=== PATIENT | female | born 1935 | race African-American/Black ===

== ENCOUNTER 2017-03-12 23:24 | Inpatient (IN) | payer MEDICARE ==
--- NOTE | ~2017-03-12 | CO ---
Unit #: [id number] #: [id number] Patient: KAITLYNN MALCOLM [id number] [address] [place], [place] [address] [id number] MR#: [id number] NAME: KAITLYNN MALCOLM ROOM: 329 Age: 81 Sex: F Admission Date: 03/13/2017 : 1935 Attending Physician: Shilo Cruz M.D. Consultation Date: 03/13/2017 CONSULTATION REPORT HISTORY OF PRESENT ILLNESS This is an 81-year-old female, admitted with a 1-day history of nausea, vomiting, diarrhea, abdominal pain, probable gastroenteritis. We were asked to see the patient secondary to bradycardia. On review of the telemetry strips and EKG, there was no evidence of high-grade AV block or junctional rhythm. The patient is poorly cooperative and a poor historian; however, she does deny any complaints of chest pain, shortness of breath, or palpitations. EKG shows marked sinus bradycardia, rate of 47 beats per minute, left bundle-branch block is present. I am unsure if this is new or old as there are no prior records for comparison. The patient does not know who her normal roll table operator is. Initial cardiac enzymes have been negative. At present, there is no family present at bedside. Again, she is poorly cooperative, will not answer any questions hardly, and is curled up in a ball. States she does not want to be bothered. According to Dr. Cruz's note, he was able to access some records from the [facility] and she has been seen by Dr. Gilmore in the past and apparently had a negative Lexiscan stress test in 2012. PAST MEDICAL HISTORY 1. Hypertension. 2. Questionable dementia. 3. Questionable leaky valve. 4. GERD. 5. Questionable coronary artery disease. 6. Panic attacks. 7. Arthritis. 8. Anxiety. PAST SURGICAL HISTORY 1. Right foot surgery. 2. Uterine prolapse. SOCIAL HISTORY The patient lives with family members according to the chart. Lifelong nonsmoker. Denies alcohol or drug use. FAMILY HISTORY Unknown. MEDICATIONS Unit #: [id number] #: [id number] Patient: KAITLYNN MALCOLM Remeron 15 mg p.o. q.h.s., Celexa 20 mg p.o. daily, Aricept 5 mg p.o. daily, carvedilol 3.125 p.o. b.i.d., Loratadine-D one p.o. q.h.s., clonazepam 0.5 mg p.o. b.i.d., lisinopril 5 mg p.o. daily. ALLERGIES No known drug allergies. PHYSICAL EXAMINATION GENERAL: The patient is curled up in a ball, is minimally cooperative, and a poor historian, does not appear to be in any distress. VITAL SIGNS: Temperature 98.5, respiratory rate 18, pulse is 40s to 50s, blood pressure 160/76 to 173/82. HEENT: Pupils are equal and round. Mucous membranes are moist. NECK: Trachea is midline. Supple. No thyromegaly. No lymphadenopathy. No carotid bruits. CARDIOVASCULAR: S1, S2. No audible murmur, gallop, or rub. LUNGS: Scattered rhonchi, diminished in the bases. ABDOMEN: Soft, nontender, nondistended. Bowel sounds are present. EXTREMITIES: Trace lower extremity edema. No clubbing, cyanosis. NEUROLOGIC: Poor historian. Follows basic commands. Moves all extremities. DIAGNOSTIC STUDIES LABORATORY RESULTS: Glucose 97, BUN 17, creatinine 1.3, sodium 141, potassium 3.6, chloride 109, CO2 of 25. Initial troponin is negative. TSH is currently pending. Hemoglobin 9.4, hematocrit 28.7, WBC 6.6, platelet count 151. Urinalysis was negative. She has blood cultures which are currently pending. IMAGING STUDIES: Chest x-ray shows no active disease, stable mild cardiomegaly, benign calcified granulomas in the left lung base and left hilum. No change since 09/26/2008. CT of the abdomen and pelvis shows cholelithiasis, mild gallbladder wall thickening. No bile duct dilation. Infrarenal abdominal aortic aneurysm measuring up to 3.5 cm. Bilateral renal cysts and multiple small nonobstructing renal parenchymal calcifications, sigmoid diverticulosis. CARDIOVASCULAR STUDIES: EKG shows marked sinus bradycardia, rate of 47 beats per minute, left bundle-branch block, QTc interval of 506 msec, she does have some T-wave inversion in the inferior leads. IMPRESSION 1. Viral gastroenteritis with nausea, vomiting, and diarrhea. 2. Marked sinus bradycardia. 3. Left bundle-branch block with an abnormal EKG. I am unsure if this is new or old, as there are no prior records available for review. 4. Hypertension. 5. Dementia. 6. History of questionable weak heart. PLAN The patient has been difficult to cooperate and is a poor historian. At present, there is no family available at bedside. I attempted to reach the son and there was no answer. At this time, we will continue to monitor cardiac enzymes and troponins. The patient does have an abnormal Unit #: [id number] #: [id number] Patient: KAITLYNN MALCOLM EKG with a left bundle-branch block. I am unsure if this is new or old and she does have some T-wave inversion in the inferior leads. We have no prior EKGs for comparison. There is some question of weak heart and the patient apparently had an ischemic evaluation in the past. Per review of the hospitalist's note at [facility] in 2012, which was negative at that time, and apparently had been followed by Dr. Gilmore in the past. At this time, we would discontinue her carvedilol secondary to the marked bradycardia; however, the patient is asymptomatic. We would also add hydralazine 10 mg p.o. t.i.d. as her blood pressure is slightly elevated. Hold for systolic less than 100. We will check 2D echocardiogram with Doppler studies to assess LVEF and for any valvular abnormalities. We will add a BNP to blood and lab, check fasting lipid panel. Would recommend keeping the patient n.p.o. after midnight for a Lexiscan Cardiolite in the a.m. if she will cooperate. We will also give orders for IV hydralazine p.r.n. for systolic greater than 160. Suppose the patient most likely suffers from sinus node dysfunction, again her beta-cindy has been discontinued. If symptomatic, can consider evaluation for permanent pacemaker placement. TSH is currently pending. Dictated by... Bereket WebbPJero for Ying Cantor M.D. CONNIE/tianna TD: 03/14/2017 02:49 JOB #: [id number] CONSULTATION REPORT Page 1 of 1 X July Servin APRN CONSULTATION REPORT
--- NOTE | ~2017-03-12 | CR72 ---
[facility] A Service of [facility] RADIOLOGY TEXT RESULTS PATIENT: KAITLYNN MALCOLM [facility] [id number] : [birth year] UNIT #: [id number] AGE: [address]: Hussein Pinon MD SEX: F ORDER DR: [id number] [facility] [address] [place], [place] [address] [id number] E MR#: [id number] Acc #: [id number] NAME: KAITLYNN MALCOLM : 1935 SEX: F STUDY DATE/TIME: 03/12/2017 22:20 UNIT: [facility] ROOM: STUDY DESCRIPTION: CR Chest Single View Portable Attending Physician: Conner Mendez M.D. Ordering Physician: Conner Mendez M.D. MEDICAL IMAGING REPORT This report is preliminary unless electronic signature is present EXAM Chest x-ray 03/12/2017 HISTORY 81-year-old female in the ED complaining of 1-day history of shortness of air, weakness, nausea, vomiting and diarrhea. TECHNIQUE AP upright chest x-ray. FINDINGS No active disease in the chest. Mild cardiomegaly. Pulmonary vascularity is normal. The lungs appear clear. No visible pulmonary infiltrate or pleural effusion. Benign calcified granulomas in the left lung base and left hilum. IMPRESSION 1. No active disease. 2. Stable mild cardiomegaly. 3. No change since 09/26/2008. Dictated by... Jeff Tripp M.D. THIS IS AN ELECTRONICALLY VERIFIED REPORT Jeff Tripp M.D. at 03/13/2017 5:53 AM NETTIE/kimani TD: 03/12/2017 23:28 JOB #: [id number] MEDICAL IMAGING REPORT Page 1 of 1 COPY
--- NOTE | ~2017-03-12 | EKG ---
PATIENT: KAITLYNN MALCOLM UNIT #: [id number] Ventricular Rate: 47 BPM Atrial Rate: 47 BPM P-R Interval: 140 ms QRS Duration: 138 ms Q-T Interval: 572 ms QTC Calculation(Bezet): 506 ms P [place]: 70 degrees Calculated R [place]: -11 degrees Calculated T [place]: -124 degrees Diagnosis Line: Marked sinus bradycardia Diagnosis Line: Left bundle branch block Diagnosis Line: Abnormal ECG Diagnosis Line: No previous ECGs available Diagnosis Line: Confirmed by EVAN REINA MD ([id number]) on Diagnosis Line: 03/13/2017 12:49:58 PM INTERPRETING MD: XENIA
--- NOTE | ~2017-03-12 | DS ---
Unit #: [id number] #: [id number] Patient: KAITLYNN MALCOLM [id number] [address] [address] [id number] I MR#: [id number] NAME: KAITLYNN MALCOLM ROOM: 329 Age: 81 Sex: F Admission Date: 03/13/2017 : 1935 Discharge Date: 03/15/2017 Attending Physician: Anny Francis M.D. DISCHARGE SUMMARY ADDENDUM DISCHARGE DIAGNOSES (CONTINUED) 14. Tachycardia. HOSPITAL COURSE (CONTINUED) Following dictation yesterday, off of beta blockers patient's heart rate increased to 150; thus, discharge was held. Cardiology placed her on low-dose metoprolol, and at this time, heart rate has remained stable in the 60s to 70s. Her nausea and vomiting have resolved, and she has not had any chest pain. She will be discharged home later today on medications as outlined below. DISCHARGE CONDITION Stable. DISCHARGE STATUS Discharge to home. DISCHARGE MEDICATIONS 1. Metoprolol tartrate 12.5 mg b.i.d. 2. Celexa 20 mg daily. 3. Remeron 15 mg at bedtime. 4. Claritin D 1 at bedtime. 5. Clonazepam 0.5 mg b.i.d. 6. Aricept 5 mg daily. 7. Hydralazine 25 mg t.i.d. 8. Lisinopril 5 mg daily. DISCHARGE INSTRUCTIONS 1. Patient is instructed to follow a heart-healthy diet as previously noted. 2. She will follow up with Dr. Gilmore in two to three weeks as previously dictated. 1. Dictated by... Bandar Sol TD: 03/15/2017 21:36 JOB #: [id number] Unit #: [id number] #: [id number] Patient: KAITLYNN MALCOLM DISCHARGE SUMMARY Page 1 of 1 X Anny Francis MD DISCHARGE SUMMARY
--- NOTE | ~2017-03-12 | EKG ---
PATIENT: KAITLYNN MALCOLM UNIT #: [id number] Ventricular Rate: 64 BPM Atrial Rate: 64 BPM P-R Interval: 142 ms QRS Duration: 136 ms Q-T Interval: 490 ms QTC Calculation(Bezet): 505 ms P [place]: 71 degrees Calculated R [place]: 37 degrees Calculated T [place]: -147 degrees Diagnosis Line: Normal sinus rhythm Diagnosis Line: Left bundle branch block with repolarization Diagnosis Line: abnormality Diagnosis Line: Abnormal ECG Diagnosis Line: When compared with ECG of 13-MAR-2017 07:46, Diagnosis Line: ST no longer elevated in Anterior leads Diagnosis Line: Confirmed by KEVEN LORENZANA MD ([id number]) on 03/17/2017 Diagnosis Line: 11:45:26 AM INTERPRETING MD: HARRIETT CUNNINGHAM
--- NOTE | ~2017-03-12 | DS ---
Unit #: [id number] #: [id number] Patient: KAITLYNN GASTELUM [id number] [address] [address] [id number] I MR#: [id number] NAME: KAITLYNN GASTELUM ROOM: 329 Age: 81 Sex: F Admission Date: 03/13/2017 : 1935 Discharge Date: 03/15/2017 Attending Physician: Anny Francis M.D. DISCHARGE SUMMARY PRINCIPAL DIAGNOSES 1. Viral gastroenteritis. 2. Medication-induced bradycardia, now resolved. 3. Chronic kidney disease, stage 3. Recent creatinine approximately 1.4. 4. Chronic systolic congestive heart failure with ejection fraction of 40% to 45%. 5. Dementia, likely vascular. 6. Chronic left bundle branch block. 7. Depression. 8. Hypertension, controlled. 9. Coronary artery disease. 10. Panic attacks. 11. Osteoarthritis. 12. Underweight. 13. Normocytic anemia. CONSULTANTS Dr. Ramirez, cardiology. PROCEDURES 1. 2D echocardiogram with ejection fraction of 40% to 45%. Moderately dilated left atrium noted. Mild mitral regurgitation noted. 2. Chest x-ray, 03/12/2017, stable cardiomegaly. 3. CT scan of the abdomen and pelvis, 03/13/2017, with findings of cholelithiasis and mild gallbladder wall thickening. No bile duct dilatation. Infrarenal abdominal aortic aneurysm measuring 3.5 cm. CLINICAL HISTORY AND HOSPITAL COURSE Ms. Gastelum is a nice 81-year-old female brought to the emergency department by her family due to nausea and vomiting. Please refer to History and Physical for further details. CT scan of the abdomen and pelvis in the emergency department was essentially unremarkable. The patient's blood work was also nonspecific. The patient was placed in observation for evaluation. The patient was started on a clear liquid diet and, fortunately, her nausea and vomiting has resolved. It appears she has not had any fever nor has she had any leukocytosis during her hospitalization. I will advance diet. The patient was found to have bradycardia and was on chronic beta cindy therapy. For this reason, Cardiology was consulted. Beta cindy was held and her bradycardia has resolved. This can be followed up as an outpatient. Unit #: [id number] #: [id number] Patient: KAITLYNN GASTELUM The patient did undergo a 2-dimensional echocardiogram with findings as noted. Will continue her on ESTEPHANIA inhibitor upon discharge. Patient will be discharged home today. DISCHARGE CONDITION Stable. DISCHARGE STATUS Discharge to home. DISCHARGE MEDICATIONS 1. Celexa 20 mg daily. 2. Remeron 15 mg h.s. 3. Loratadine D one tablet h.s. 4. Clonazepam 0.5 mg b.i.d. 5. Aricept 5 mg daily. 6. Hydralazine 25 mg p.o. t.i.d. 7. Lisinopril 5 mg daily. DISCHARGE INSTRUCTIONS 1. Patient was instructed to follow a heart healthy diet. 2. Increase activities as tolerated. FOLLOWUP Dr. Gilmore, her primary advisory software engineer, in two to three weeks. Dictated by... Anny Francis M.D. WEI/lopez TD: 03/15/2017 17:10 JOB #: [id number] DISCHARGE SUMMARY Page 1 of 1 X Anny Francis MD X DISCHARGE SUMMARY
--- NOTE | ~2017-03-12 | EKG ---
PATIENT: KAITLYNN MALCOLM UNIT #: [id number] Ventricular Rate: 68 BPM Atrial Rate: 68 BPM P-R Interval: 114 ms QRS Duration: 140 ms Q-T Interval: 482 ms QTC Calculation(Bezet): 512 ms P [place]: 73 degrees Calculated R [place]: 12 degrees Calculated T [place]: -154 degrees Diagnosis Line: Normal sinus rhythm Diagnosis Line: Left bundle branch block Diagnosis Line: Abnormal ECG Diagnosis Line: No previous ECGs available Diagnosis Line: Confirmed by EVAN REINA MD ([id number]) on Diagnosis Line: 03/13/2017 12:41:45 PM INTERPRETING MD: XENIA
--- NOTE | ~2017-03-12 | TH ---
Unit #: [id number] #: [id number] Patient: KAITLYNN MALCOLM [id number] [address] [address] [id number] I MR#: [id number] NAME: KAITLYNN MALCOLM : 1935 SEX: F STUDY DATE/TIME: 03/14/2017 UNIT: [id number] ROOM: 329 STUDY DESCRIPTION: Attending Physician: Anny Francis M.D. CARDIOLOGY REPORT EXAM Rest images of nuclear study. INDICATION Chest pain. SUMMARY Patient underwent nuclear study. Only rest images were obtained. Patient's test was cancelled as it was deemed unrequired/unnecessary during this presentation. Patient received a resting dose of 11.45 mCi on rest only images. Rest images have been reviewed and show appropriate uptake of the tracer in the myocardium. There is no stress part/no gated imaging. CONCLUSION 1. Uniform uptake of tracer seen in the rest only images. 2. No further perfusion imaging available to comment on ischemia. 3. No infarction noted. 4. Incomplete study (test stopped as was deemed not necessary during this hospitalization any further). 1. Dictated by... Yassine Maldonado M.D. CT/sheldon TD: 03/14/2017 15:45 JOB #: [id number] CARDIOLOGY REPORT Page 1 of 1 X YASSINE MALDONADO MD CARDIOLOGY REPORT
--- NOTE | ~2017-03-12 | A ---
[facility] Nutrition Therapy DATE: 03/14/17 Patient: KAITLYNN MALCOLM Physician: NILAY Address: [address] [place] [address] Room/Bed: [address] [place] [address], Zip: [place] [address] Admit Date: 03/14/17 Date of : [birth year] Height: 5 5 Weight: 100 45.4 NUTRITIONAL ASSESSMENT: REASON: LOW BMI PT IS 81 Y.O. FEMALE ADMITTED FOR GASTROENTERITIS PMH: ARTHRITIS, ANXIETY, DEPRESSION, GERD, POSSIBLE CAD, POSSIBLE DEMENTIA Anthropometrics: 5'5", WT: 96-100# (44-45 KG), BMI: 16.0-16.6, 77-80%IBW Labs: CREAT: 1.5, GFR: 37.0 Meds: REMERON, PROTONIX, ZOFRAN, NACL I/O & Bowel function: 1200/905 Skin Integrity: DRY SKIN NOTED ALL OVER BODY Estimated Nutrition Needs: INCREASED NUTRIENT NEEDS 2' PT UNDERWEIGHT, CURRENT CONDITION Assessment: CHART REVIEWED AND EVENTS NOTED. PT SEEN FOR LOW BMI. PT DID NOT COMMUNICATE 2' SLEEPY/LETHARGIC AND ?DEMENTIA. RD SPOKE TO SON AT BEDSIDE WHO REPORTS PT TO HAVE A NORMAL FAIR/GOOD PO INTAKE AND APPETITE. SON ADDS PT CONSUMES 3 MEALS DAILY AT HOME. OF NOTE, PT LOST HER BOTTOM DENTURE SO HAS BEEN EATING SOFT FOODS PAST 2-3 WEEKS. SON NOTES PT HAS BEEN SAME WEIGHT PAST YEAR. RD ENCOURAGED ADEQUATE KCAL AND PROTEIN INTAKE, SON AGREED THAT ENSURE SHAKES WOULD BE BENEFICIAL, RD WILL ORDER. RD ALSO PROVIDED WRITTEN SOFT FOOD NUTRITION THERAPY DIET EDUCATION. SON REPORTED NO DIET QUESTIONS AT THIS TIME. RD TO FOLLOW. Dx: UNDERWEIGHT R/T PMH, DECREASED INTAKE, ADVANCED AGE AEB BMI OF 16.0-16.6, 77-80%IBW. Intervention: 1. FULL LIQUID DIET 2. ENSURE SHAKES BID 3. WRITTEN SOFT FOODS DIET EDUCATION Monitoring, Evaluation and Goals: 1. ORAL INTAKE; ADVANCE DIET AND CONSUME >50% OF MEALS AND SUPPLEMENTS W/NO C/O N/V/D 2. WEIGHTS; PROMOTE GRADUAL WEIGHT GAIN 3. GI; PROMOTE REGULAR GI FUNCTION MONITOR: -DIET ADVANCEMENT -PO INTAKE/APPETITE [facility] Nutrition Therapy DATE: 03/14/17 Patient: KAITLYNN MALCOLM Physician: NILAY Address: [address] [place] [address] Room/Bed: [address] [place] [address], Zip: [place] [address] Admit Date: 03/14/17 Date of : [birth year] Height: 5 5 Weight: 100 45.4 -SUPPLEMENT INTAKE -WEIGHTS Recommendations: 1. PLEASE ORDER VANILLA ENSURE SHAKES BID W/MEALS 2. ONCE MEDICALLY FEASIBLE, ADVANCE DIET TO REGULAR (ENCOURAGE SOFT FOODS). 3. APPRECIATE FAMILY AND STAFF TO ASSIST W/ORDERING MEALS AND ENCOURAGE PO INTAKE RD WILL F/U PER PROTOCOL PT IS MILD/MODERATELY COMPROMISED Respectfully, GALO BARLOW MS, RD, LD Food and Nutritional Services [facility] cc: client file
--- NOTE | ~2017-03-12 | HP ---
Unit #: [id number] #: [id number] Patient: KAITLYNN MALCOLM [id number] [address] [address] [id number] I MR#: [id number] NAME: KAITLYNN MALCOLM ROOM: 329 Age: 81 Sex: F Admission Date: 03/13/2017 : 1935 Attending Physician: Shilo Cruz M.D. HISTORY AND PHYSICAL The patient is a poor historian secondary to dementia, history is from collateral sources and emergency room documentation. The patient's relatives are unavailable at the time of this evaluation, phone number is [phone]. There has been a call out to the patient's relative. CHIEF COMPLAINT Nausea and vomiting. HISTORY OF PRESENT ILLNESS The patient is an eubgsx-cqcyv-mfuw-old female, who was brought to the emergency room for evaluation on account of lethargy and vomiting and diarrhea. She was admitted for evaluation. While in the (1) , she was noted to have an abnormal rhythm, though cardiac markers in the emergency room were negative. The patient is a very poor historian and unable to provide a history at this time and family member is unavailable at this time. I have been able to access the records from the [facility] and the last time she was admitted seemed to have been in March 2013 at [facility]. She has had multiple emergency room visits dating back to December 2015. She had a negative Lexiscan stress test in 2012 and per documentation in 2012 she was being followed by Dr. Gilmore. She denies any complaints at this time today. REVIEW OF SYSTEMS No chest pain, headache, shortness of breath, or difficulty breathing. PAST MEDICAL HISTORY 1. History of "a weak heart." 2. Hypertension. 3. Some uterine prolapse. 4. Coronary artery disease. 5. Gastroesophageal reflux disease. 6. Panic attacks. 7. Hypertension. 8. Arthritis. PAST SURGICAL HISTORY 1. Right foot surgery. 2. Uterine prolapse. SOCIAL HISTORY The patient is and lives with family members and lifelong Unit #: [id number] #: [id number] Patient: KAITLYNN MALCOLM nonsmoker. FAMILY HISTORY Noncontributory at this time. MEDICATIONS Don't have documentation of medications that the patient is on at this time except for the medication reconciliation which was done which included: 1. Remeron 15 mg p.o. at bedtime 2. Celexa 20 mg p.o. daily 3. Aricept 5 mg p.o. daily 4. Coreg 3.125 mg p.o. twice daily 5. Loratadine D one tablet p.o. at bedtime 6. Clonazepam 1.5 mg p.o. twice daily 7. Lisinopril 5 mg p.o. daily ALLERGIES No documented drug allergies. PHYSICAL EXAMINATION GENERAL: She was comfortable and not in any distress. VITAL SIGNS: Blood pressure 160/76, pulse 44, respiratory rate 16, temperature 99.0. HEENT: Pupils equal and reactive to light and accommodation. NECK: Neck was supple without thyromegaly. CARDIOVASCULAR SYSTEM: First and second heart sounds only. ABDOMEN: Soft, nondistended, nontender. EXTREMITIES: Mild 1+ bilateral lower extremity edema. SKIN: Warm and dry with no rashes. DIAGNOSTIC STUDIES LABORATORY: Diagnostic data, she had chemistries, glucose of 97, BUN and creatinine 70 and 1.3, sodium and potassium 141 and 3.6. She had a CBC and WBC 6.6, hemoglobin and hematocrit 9.4 and 28.7, platelet count 151, neutrophil count of 84.9. Urinalysis was essentially negative with a specific gravity of 1012. Set of cardiac markers were negative. IMAGING: A chest x-ray was done was also no active disease, stable cardiomegaly. ASSESSMENT/PLAN 1. Lethargy of questionable etiology, will get amylase and lipase, and volume status-louise the patient seems to be optimal. 2. Questionable bad heart, that is actually what the diagnosis is, looking back in 2013 ejection fraction was about 75%, in light of the abnormal rhythm of the strip we will get cardiology to evaluate the patient and get two sets of cardiac enzymes. 3. Gastroenteritis, the patient is stable at this time, I see no reason to put her on fluids, we will just keep fluid replacement so we can evaluate the patient completely. 4. Abnormal EKG, EKG showed mild sinus debra, left bundle branch block. The patient is on a beta cindy, other than chloride, this has been held at this time. 5. Alzheimer's dementia. She is on Aricept. DISPOSITION This is to be determined. Unit #: [id number] #: [id number] Patient: KAITLYNN MALCOLM Dictated by Bandar Tovar TD: 03/13/2017 12:21 JOB #: [id number] HISTORY AND PHYSICAL Page 1 of 1 X Shilo Cruz MD X HISTORY AND PHYSICAL
--- NOTE | ~2017-03-12 | CT4 ---
[facility] A Service of [facility] RADIOLOGY TEXT RESULTS PATIENT: KAITLYNN MALCOLM LOCATION: [facility] 329-01 : 33 UNIT #: [id number] AGE: [address]: Shilo Cruz MD SEX: F ORDER DR: [id number] [facility] [address] [place], [place] [address] [id number] MR#: [id number] #: [id number] NAME: KAITLYNN MALCOLM : 1935 SEX: F STUDY DATE/TIME: 03/13/2017 1:02 UNIT: [address] ROOM: [facility] STUDY DESCRIPTION: CT Abd and Pelv Wo Cont Attending Physician: Shilo Cruz M.D. Ordering Physician: Conner Mendez M.D. MEDICAL IMAGING REPORT This report is preliminary unless electronic signature is present EXAM CT abdomen and pelvis, noncontrast, 03/13/2017. HISTORY 81-year-old female in the ED complaining of new onset nausea, diarrhea and vomiting beginning earlier today. The patient has dementia. TECHNIQUE CT examination of the abdomen and pelvis was performed without oral or IV contrast. This CT exam was performed with one or more of the following radiation dose reduction techniques: automatic control, adjustment of mA and/or kV according to patient size, and iterative reconstruction. FINDINGS ABDOMEN FINDINGS: Multiple gallstones are present within a nondistended, thick-walled gallbladder. There is no bile duct dilatation. Liver, pancreas and spleen are within normal limits. Multiple bilateral renal cysts are present along with numerous small nonobstructing renal parenchymal calcifications. Infrarenal abdominal aortic aneurysm measures up to 3.5 cm in diameter, but there is no periaortic fluid collection. Moderate sigmoid diverticulosis. Small bowel and colon are otherwise normal in caliber and appearance, as imaged. PELVIS FINDINGS: Uterus is not identified and is presumably surgically absent. Bladder wall appears mildly thickened. Rectum is unremarkable. No inguinal hernia. Limited lung base images show no active disease in the lower chest. 1. Cholelithiasis. Mild gallbladder wall thickening. No bile duct dilatation. 2. Infrarenal abdominal aortic aneurysm measuring up to 3.5 cm. 3. Bilateral renal cysts and multiple small nonobstructing renal parenchymal calcifications. [facility] A Service of [facility] RADIOLOGY TEXT RESULTS PATIENT: KAITLYNN MALCOLM LOCATION: [facility] 329-01 : 33 UNIT #: [id number] AGE: [address]: Shilo Cruz MD SEX: F ORDER DR: 4. Sigmoid diverticulosis. 5. The wall of the urinary bladder appears mildly thickened. No evidence of upper urinary tract obstruction. Dictated by... Jeff Tripp M.D. THIS IS AN ELECTRONICALLY VERIFIED REPORT Jeff Tripp M.D. at 03/13/2017 9:51 PM NETTIE/kimani TD: 03/13/2017 02:43 JOB #: [id number] MEDICAL IMAGING REPORT Page 1 of 1 COPY
[2017-03-12 21:37] LABS: BASOPHIL% 0.3 % (0-2.5); EOSINOPHIL# 0.1 X10e3 (0-0.7); EOSINOPHIL% 1.3 % (0.0-7.0); HEMATOCRIT 34.4 % (35.0-45.0); HEMOGLOBIN 11.4 gm/dL (12.0-16.0); LYMPHOCYTE# 0.3 X10e3 (1.0-3.5); LYMPHOCYTE% 3.8 % (17.0-45.0); MEAN CELL VOLUME 89.7 FL (83-96); MEAN CORPUSCULAR HEMOGLOBIN 29.7 PG (28-34); MEAN CORPUSCULAR HGB CONC 33.1 g/dL (30-36); MONOCYTE# 0.4 X10e3 (0-1.0); MONOCYTE% 4.4 % (3.0-12.0); NEUTROPHIL# 8.2 X10e3 (1.5-7.1); NEUTROPHIL% 90.2 % (40-75); PLATELET COUNT 174 X10e3 (140-420); RED BLOOD COUNT 3.83 X10e (3.90-5.30); RED CELL DISTRIBUTION WIDTH 14.6 % (11.0-15.5); WHITE BLOOD COUNT 9.1 X10e3 (4.0-10.5)
[2017-03-12 21:38] LABS: DIFF IND NO
[2017-03-12 22:21] LABS: URINE SOURCE CLEAN CATCH
[2017-03-12 22:27] LABS: URINE APPEARANCE CLEAR; URINE BILIRUBIN NEG (NEG); URINE BLOOD NEG (NEG); URINE COLOR YELLOW; URINE GLUCOSE NEG (NEG); URINE KETONE NEG (NEG); URINE LEUKOCYTE ESTERASE NEG (NEG); URINE NITRATE NEG (NEG); URINE PH 6.5 (5-8); URINE PROTEIN NEG (NEG); URINE SPECIFIC GRAVITY 1.012 (1.003-1.035); URINE UROBILINOGEN 0.2 MG/DL (NEG)
[2017-03-12 22:28] LABS: POC - CKMB 1.6 ng/mL (0.0-7.9); POC - TROPONIN <0.05 ng/mL (<=0.05)
[2017-03-12 22:34] LABS: CULTURE INDICATED? NO
[2017-03-12 22:50] LABS: INFLUENZA A NEG (NEG); INFLUENZA B NEG (NEG)
[2017-03-12 22:51] LABS: ALBUMIN SERUM 4.1 g/dL (3.5-5.0); BILIRUBIN, DIRECT 0.1 mg/dL (0.0-0.2); BILIRUBIN,INDIRECT 0.4 mg/dL (0.0-0.9); BILIRUBIN,TOTAL 0.5 mg/dL (0.2-2.0); BUN/CREATININE RATIO 13.84; CALCIUM SERUM 9.6 mg/dL (8.4-10.2); CREATININE SERUM 1.3 mg/dL (0.6-1.4); GLOM FILT RATE Estimated 37.9 mL/min (>60); POTASSIUM 3.7 mmol/L (3.5-5.1); PROTEIN TOTAL SERUM 7.1 g/dL (6.0-8.3)
[2017-03-13] MEDS ORDERED: REMERON15 MG PO (04:02)
[2017-03-13] MEDS ORDERED: CELEXA20 MG PO (04:03)
[2017-03-13] MEDS ORDERED: ARICEPT5 M1 PO (04:04)
[2017-03-13] MEDS ORDERED: COREG3.125 MG PO (04:05)
[2017-03-13] MEDS ORDERED: CLONAZEPAM0.5 MG PO (04:07)
[2017-03-13] MEDS ORDERED: [UNRECOGNIZED DRUG - OTHER] PO (04:07)
[2017-03-13] MEDS ORDERED: LISINOPRIL5 MG PO (04:08)
[2017-03-13 04:51] LABS: BASOPHIL% 0.1 % (0-2.5); DIFF IND NO; EOSINOPHIL# 0.1 X10e3 (0-0.7); EOSINOPHIL% 0.8 % (0.0-7.0); HEMATOCRIT 28.7 % (35.0-45.0); HEMOGLOBIN 9.4 gm/dL (12.0-16.0); LYMPHOCYTE# 0.6 X10e3 (1.0-3.5); LYMPHOCYTE% 9.5 % (17.0-45.0); MEAN CELL VOLUME 89.5 FL (83-96); MEAN CORPUSCULAR HEMOGLOBIN 29.4 PG (28-34); MEAN CORPUSCULAR HGB CONC 32.8 g/dL (30-36); MEAN PLATELET VOLUME 7.8 FL (6.5-11.5); MONOCYTE# 0.3 X10e3 (0-1.0); MONOCYTE% 4.7 % (3.0-12.0); NEUTROPHIL# 5.6 X10e3 (1.5-7.1); NEUTROPHIL% 84.9 % (40-75); PLATELET COUNT 151 X10e3 (140-420); WHITE BLOOD COUNT 6.6 X10e3 (4.0-10.5)
[2017-03-13 05:16] LABS: BUN/CREATININE RATIO 13.07; CALCIUM SERUM 8.8 mg/dL (8.4-10.2); CREATININE SERUM 1.3 mg/dL (0.6-1.4); GLOM FILT RATE Estimated 43.9 mL/min (>60); POTASSIUM 3.6 mmol/L (3.5-5.1)
[2017-03-13 11:09] LABS: %MB 3.8 % (0.0-4.0); MB 2.4 ng/ml
[2017-03-13 16:32] LABS: %MB 3.2 % (0.0-4.0); MB 2.8 ng/ml
[2017-03-13 22:27] LABS: %MB 2.5 % (0.0-4.0); MB 2.6 ng/ml
[2017-03-14 07:18] LABS: HEMATOCRIT 32.4 % (35.0-45.0); HEMOGLOBIN 10.6 gm/dL (12.0-16.0); MEAN CELL VOLUME 90.2 FL (83-96); MEAN CORPUSCULAR HEMOGLOBIN 29.6 PG (28-34); MEAN CORPUSCULAR HGB CONC 32.8 g/dL (30-36); MEAN PLATELET VOLUME 8.4 FL (6.5-11.5); RED BLOOD COUNT 3.59 X10e (3.90-5.30); RED CELL DISTRIBUTION WIDTH 14.2 % (11.0-15.5)
[2017-03-14 07:51] LABS: BUN/CREATININE RATIO 9.33; CREATININE SERUM 1.5 mg/dL (0.6-1.4); POTASSIUM 3.6 mmol/L (3.5-5.1)
[2017-03-14] MEDS ORDERED: HYDRALAZINE HCL25 MG PO (11:44)
[2017-03-15] MEDS ORDERED: METOPROLOL TART25 MG PO (15:39)
== END 2017-03-15 16:16 | disposition home or self-care (01) | DRG 309 ==
LOC: CED 23:24 → CEDOF 03-13 03:15 → C3A PCU 03-14 14:25
PROVIDERS: Emergency Medicine; Family Medicine; Internal Medicine Cardiovascular Disease
PROC: B246ZZZ Ultrasonography of Right and Left Heart (ICD-10-PCS; principal; 2017-03-13)
DX: R00.0 Tachycardia, unspecified (principal); Z68.1 Body mass index [BMI] 19.9 or less, adult; I13.0 Hypertensive heart and chronic kidney disease with heart failure and stage 1 through stage 4 chronic kidney disease, or unspecified chronic kidney disease; I50.22 Chronic systolic (congestive) heart failure; I42.9 Cardiomyopathy, unspecified; A08.4 Viral intestinal infection, unspecified; R00.1 Bradycardia, unspecified; R63.6 Underweight; N18.3 Chronic kidney disease, stage 3 (moderate); K21.9 Gastro-esophageal reflux disease without esophagitis; I25.10 Atherosclerotic heart disease of native coronary artery without angina pectoris; I71.4 Abdominal aortic aneurysm, without rupture; I44.7 Left bundle-branch block, unspecified; F01.50 Vascular dementia, unspecified severity, without behavioral disturbance, psychotic disturbance, mood disturbance, and anxiety; F32.9 Major depressive disorder, single episode, unspecified; F41.0 Panic disorder [episodic paroxysmal anxiety]; M19.90 Unspecified osteoarthritis, unspecified site; D64.9 Anemia, unspecified
CPT/HCPCS: 36415; 51701; 71010; 74176; 78451; 80048; 80061; 80076; 81003; 82150; 82550; 82553; 83690; 83880; 84443; 84484; 85025; 85027; 87040; 87804; 93005; 93306; 96374; 99285; A9500; C9113; J0360; J2405; J2785